=== PATIENT | male | born 1980 | race African-American/Black ===

== ENCOUNTER 2019-05-17 | Emergency (ER) | payer OTHER ==
[2019-05-17] MEDS ORDERED: AMLODIPINE BESY10 MG PO (09:08)
[2019-10-27] MEDS ORDERED: PROVENTIL0.083 % IN (11:21)
[2019-10-27] MEDS ORDERED: BENZONATATE200 MG PO (11:21)
[2019-10-27] MEDS ORDERED: HYDROCHLOROT25 MG PO (11:22)
[2019-10-27] MEDS ORDERED: D 10001000 UNIT PO (11:23)
== END 2019-05-17 09:34 | disposition home or self-care (01) ==
DX: M94.0 Chondrocostal junction syndrome [Tietze] (principal); I10 Essential (primary) hypertension

== ENCOUNTER 2020-11-02 02:45 | Emergency (ER) | payer OTHER ==
[~2020-11-02] VITALS: Ht 177.8 cm; Wt 90.0 kg
[~2020-11-02 02:45] MED LIST: AMLODIPINE BESY10 MG PO; BENZONATATE200 MG PO; D 10001000 UNIT PO; HYDROCHLOROT25 MG PO; PROVENTIL0.083 % IN
[2020-11-02 03:34] LABS: HEMATOCRIT 44.5 % (39.0-50.0); HEMOGLOBIN 14.8 g/dl (14.0-18.0); IMMATURE GRANULOCYTES 0.3 % (0.0-5.0); MEAN CELL VOLUME 91.4 fL CALC (80.0-100.0); MEAN CORPUSCULAR HGB 30.4 pG CALC (26.0-32.0); MEAN CORPUSCULAR HGB CONC 33.3 g/dL CAL (32.0-36.0); NEUT# 14.38 thou/uL (1.82-7.42); RED BLOOD COUNT 4.87 mill/uL (4.70-6.10); RED CELL DISTRI WIDTH 12.5 % (11.5-15.5)
[2020-11-02 03:51] LABS: ALBUMIN 4.1 g/dL (3.2-5.0); ALKALINE PHOSPHATASE 94 u/l (38-126); AMYLASE 45 u/l (30-110); ANION GAP 13 (6-22 (CALC)); BILIRUBIN, TOTAL 0.5 mg/dL (0.0-1.4); BUN 13 mg/dL (9-20); BUN/CREATININE RATIO 13 (12-20 (CALC)); CARBON DIOXIDE 27 mmol/l (22-30); CHLORIDE 100 mmol/l (95-108); GFR > 60 ML/MIN (>=60 (CALC)); GFR FOR AFR.AMER. > 60 ML/MIN (>=60 (CALC)); LIPASE 15 u/l (23-300); POTASSIUM 3.6 mmol/l (3.5-5.1); SGOT/AST 21 u/l (17-59); SODIUM 137 mmol/l (137-146); TOTAL PROTEIN 7.3 g/dL (6.3-8.2)
[2020-11-02 03:52] LABS: D-DIMER 0.58 mg/L (0.19-0.60)
[2020-11-02 03:55] LABS: ACT PARTIAL THROMBO TIME 29.3 SECONDS (20.0-32.5); PROTHROMBIN TIME 10.7 SECONDS (9.0-12.5)
[2020-11-02 04:02] LABS: MYOGLOBIN 38 ng/mL (0 - 121)
[2020-11-02] MEDS ORDERED: AMOXICILLIN500 M2 PO (04:43)
[2020-11-02 05:57] VITALS: BP 180/74
== END 2020-11-02 06:27 | disposition home or self-care (01) ==
LOC: ED 02:45
PROVIDERS: Family Medicine
DX: M94.0 Chondrocostal junction syndrome [Tietze] (principal); J02.9 Acute pharyngitis, unspecified; I10 Essential (primary) hypertension; F17.200 Nicotine dependence, unspecified, uncomplicated; Z20.822 Contact with and (suspected) exposure to COVID-19